=== PATIENT | female | born 1950 | race African-American/Black ===

== ENCOUNTER → 2017-08-02 | Outpatient (CLI) | payer MEDICARE | LOC: CVU 12:43 | PROVIDERS: ATTEND Internal Medicine Cardiovascular Disease | DX: I08.0 Rheumatic disorders of both mitral and aortic valves (principal); I10 Essential (primary) hypertension; E11.9 Type 2 diabetes mellitus without complications; E78.5 Hyperlipidemia, unspecified | CPT/HCPCS: 93306 ==